=== PATIENT | male | born 1960 | race African-American/Black ===

== ENCOUNTER 2021-08-27 04:25 | Emergency (ER) | payer OTHER ==
[2021-08-27 04:35] VITALS: BMI 20.5
[2021-08-27 05:19] LABS: URINE APPEARANCE CLEAR; URINE BILIRUBIN NEGATIVE (NEGATIVE); URINE COLOR YELLOW; URINE GLUCOSE (UA) NEGATIVE (NEGATIVE); URINE KETONE NEGATIVE (NEGATIVE); URINE LEUK ESTERASE NEGATIVE (NEGATIVE); URINE NITRITE NEGATIVE (NEGATIVE); URINE PROTEIN NEGATIVE (NEGATIVE); URINE UROBILINOGEN 0.2 mg/dL (0.2-1.0)
[2021-08-27 05:20] LABS: HEMATOCRIT 39.8 % (35.4-49); MCH 30.6 pg (25.7-33.7); MCHC 32.7 g/dl (32.0-35.9); MEAN CELL VOLUME 93.4 fl (80-96); MEAN PLT VOLUME 7.8 fl (7.5-11.1); PLATELET COUNT 250 10^3/uL (134-434); RBC 4.26 M/mm3 (4.00-5.60); RDW 13.6 % (11.9-15.9); WHITE BLOOD COUNT 10.2 K/mm3 (4.0-10.0)
[2021-08-27 05:37] LABS: CHLORIDE 103 mmol/L (98-107); SODIUM 136 mmol/L (136-145)
[2021-08-27 05:39] LABS: CALCIUM 8.7 mg/dL (8.5-10.1)
[2021-08-27 05:40] LABS: ALBUMIN 3.6 g/dl (3.4-5.0); ANION GAP 7 MMOL/L (8-16); BLOOD UREA NITROGEN 12.6 mg/dL (7-18); CO2 26 mmol/L (21-32); GLUCOSE,RANDOM 111 mg/dL (74-106)
[2021-08-27 05:43] LABS: CREATININE 0.7 mg/dL (0.55-1.3); SGOT/AST 26 U/L (15-37); SGPT/ALT 13 U/L (13-61)
[2021-08-27 05:45] LABS: BILIRUBIN,TOTAL 0.3 mg/dL (0.2-1); TOT PROT 7.5 g/dl (6.4-8.2)
[2021-08-27 05:46] LABS: ALK PHOS 140 U/L (45-117)
[2021-08-27] MEDS ORDERED: levETIRAcetam 500 MG/5 ML INJECTION VIAL IVPB ONE ×2 (05:48→05:59)
[2021-08-27 06:16] VITALS: BP 127/73; PULSE 65; TEMP 98.6
[2021-08-27 08:28] LABS: ANISOCYTOSIS 0; HELMET CELLS 0; HOWELL-JOLLY BODIES 0; MACROCYTOSIS 0; OVALOCYTE 0; PLATELET ESTIMATE NORMAL; ROULEAU 0; SICKELED CELLS 0; TARGET CELLS 0; TEAR DROP CELLS 0; TOXIC GRANULATION 0
== END 2021-08-27 07:13 | disposition home or self-care (01) ==
LOC: JER 04:25
PROC: 3E033GC Introduction of Other Therapeutic Substance into Peripheral Vein, Percutaneous Approach (ICD-10-PCS; principal; 2021-08-27)
DX: G40.89 Other seizures (principal)
CPT/HCPCS: 36415; 80053; 80177; 81003; 82962; 83735; 84484; 85025; 87086; 93005; 93010; 96374; 99284-25

== ENCOUNTER 2021-12-26 08:38 | Emergency (ER) | payer OTHER ==
[2021-12-26 08:55] VITALS: BMI 21.6
[2021-12-26] MEDS ORDERED: OXcarbazepine 300 MG TABLET (UD) PO ONE (09:27)
[2021-12-26] MEDS ORDERED: DIPHTH,PERTUSS(ACELL),TET 0.5 ML DISP.SYRIN IM ONE ×2 (09:56→10:34)
[2021-12-26 12:14] VITALS: BP 129/58; PULSE 68; TEMP 98
== END 2021-12-26 12:32 | disposition home or self-care (01) ==
LOC: JER 08:38
PROC: 3E0234Z Introduction of Serum, Toxoid and Vaccine into Muscle, Percutaneous Approach (ICD-10-PCS; principal; 2021-12-26)
DX: R56.9 Unspecified convulsions (principal)
CPT/HCPCS: 82962; 90471; 90715; 99283-25

== ENCOUNTER 2023-02-19 05:00 | Emergency (ER) | payer OTHER ==
[2023-02-19 05:42] VITALS: BP 128/72; PULSE 72; RESP 20; TEMP 98.1; BMI 22.2
[2023-02-19] MEDS ORDERED: ACETAMINOPHEN 500 MG TABLET (FP) PO ONE (06:46)
[2023-02-19] MEDS ORDERED: ACETAMINOPHEN 325 MG TABLET (FP) ONE (06:46)
== END 2023-02-19 06:50 | disposition home or self-care (01) ==
LOC: JER 05:00
DX: J06.9 Acute upper respiratory infection, unspecified (principal); U07.1 COVID-19
CPT/HCPCS: 0241U-QW; 99283-25